=== PATIENT | male | born 1965 | race Two or more races ===

== ENCOUNTER 2022-09-29 13:54 | Emergency (ER) | payer OTHER ==
[~2022-09-29] VITALS: Ht 165.1 cm; Wt 61.2 kg
== END 2022-09-29 21:26 | disposition home or self-care (01) ==
LOC: ER 13:54
DX: N39.0 Urinary tract infection, site not specified (principal); R31.9 Hematuria, unspecified

== ENCOUNTER 2024-11-27 06:19 | Day surgery (SDC) | payer OTHER ==
[2024-11-22 13:33] LABS: INR 1.0
[2024-11-22 13:57] LABS: ALT/SGPT 24.0 U/L (12-78); AST/SGOT 13.0 U/L (15-37); BILIRUBIN TOTAL 0.59 mg/dL (0.3-1.2); BUN CREA RATIO 15.0 (7.0-25.0); CREATININE SERUM 1.56 mg/dL (0.70-1.30); GFR 46.27; GLOBULINA 4.0 G/DL (2.4-3.5); GLUCOSE FASTING 85.0 mg/dL (65-100); OSMOLALITY SERUM 280.0 MOSM/KG (275-295)
[2024-11-22 14:57] VITALS: BP 133/87
[~2024-11-27] VITALS: Ht 165.1 cm; Wt 62.6 kg
[~2024-11-27 06:19] MED LIST: BIKTARVY 50-201 EACH PO; CRESTOR40 MG PO; DIOVAN320 MG PO; HYDROCHLOROTHIA25 MG PO; PROCARDIA XL90 MG PO
[2024-11-27] MEDS ORDERED: CIPROFLOXACIN IN 5 % DEXTROSE 400 MG/200 ML PIGGYBAG IV ONE (08:45)
[2024-11-27] MEDS ORDERED: METRONIDAZOLE/SODIUM CHLORIDE 500 MG/100 ML PIGGYBACK IV ONE (08:45)
[2024-11-27] MEDS ORDERED: MORPHINE SULFATE 4 MG/ML VIAL IV ONE (10:15)
[2024-11-27] MEDS ORDERED: ENALAPRILAT DIHYDRATE 1.25 MG/ML VIAL IV ONE ×2 (10:15→10:45)
== END 2024-11-27 12:40 | disposition home or self-care (01) ==
LOC: CIR.AMB 06:19
PROVIDERS: ATTEND Colon & Rectal Surgery
DX: K64.2 Third degree hemorrhoids (principal); K64.4 Residual hemorrhoidal skin tags

== ENCOUNTER 2024-11-27 15:08 | Emergency (ER) | payer OTHER ==
[~2024-11-27] VITALS: Ht 165.1 cm; Wt 68.0 kg
[2024-11-27 15:29] VITALS: BP 135/78; O2SAT 97
[2024-11-27] MEDS ORDERED: RINGERS SOLUTION,LACTATED 500 ML IV STA (18:25)
[2024-11-27] MEDS ORDERED: KETOROLAC TROMETHAMINE 30 MG VIAL IV STA (18:25)
== END 2024-11-28 01:40 | disposition home or self-care (01) ==
LOC: ER 15:08
DX: N99.89 Other postprocedural complications and disorders of genitourinary system (principal); R33.8 Other retention of urine; R10.9 Unspecified abdominal pain